=== PATIENT | male | born 1995 | race African-American/Black ===

== ENCOUNTER 2024-02-10 07:53 | Emergency (ER) | payer SELFPAY ==
[~2024-02-10] VITALS: Ht 170.2 cm; Wt 80.0 kg
[2024-02-10 08:00] VITALS: BP 140/70; O2SAT 99
[2024-02-10] MEDS: ACETAMINOPHEN 325MG TABLET PO ONE (09:19)
[2024-02-10 10:33] VITALS: PULSE 71; RESP 18; TEMP 36.94740; O2SAT 99
== END 2024-02-10 11:28 | disposition home or self-care (01) ==
LOC: ER 07:53
DX: S09.90XA Unspecified injury of head, initial encounter (principal); R42 Dizziness and giddiness; W22.8XXA Striking against or struck by other objects, initial encounter; Y93.89 Activity, other specified; Y92.89 Other specified places as the place of occurrence of the external cause; Y99.8 Other external cause status
CPT/HCPCS: 99284